=== PATIENT | female | born 1960 | race Caucasian/White ===

== ENCOUNTER 2018-08-14 05:30 | Day surgery (SDC) | payer BC ==
[2018-08-14] MEDS ORDERED: fentaNYL 100 MCG/2 ML SDV IV ONE ×3 (05:31→06:36)
[2018-08-14] MEDS ORDERED: Midazolam 1 MG/ML 2 ML SDV IV ONE ×7 (05:31→06:47)
[2018-08-14] MEDS ORDERED: Dextrose 5%-0.45% NaCl 1,000 ML IV SCH (06:00)
[2018-08-14] MEDS ORDERED: Sodium Chloride 0.9% 10 ML Syringe FLUSH PRN (06:00)
[2018-08-14] MEDS ORDERED: Midazolam 1 MG/ML 2 ML SDV ONE (06:02)
[2018-08-14] MEDS ORDERED: fentaNYL 100 MCG/2 ML SDV ONE (06:02)
--- NOTE | 2018-08-14 07:18 | OR ---
DATE: 08/14/2018 PROCEDURE: Total colonoscopy. INSTRUMENT USED: PCF-H190DL Olympus video colonoscope. PREMEDICATIONS: Fentanyl 100 mcg intravenous, Versed 4 mg intravenous, nasal O2 cannula. The procedure was done under pulse oximetry, BP recording, and teletypesetter monitor. INDICATION: Screening colonoscopic examination is done for detection of any polypoid lesions and removal, endoscopic hemostasis therapy if needed. DESCRIPTION OF PROCEDURE: Initial rectal exam was unremarkable. Rigid anoscopy was normal. The colonoscope was passed with ease up to the ileocecal area. Photographs were taken of the normal-appearing cecum identified by double-bulged ileocecal folds. No bleeding was noted from any of the visualized areas at the commencement of the examination. The bowel preparation was found to be adequate, [place] scale 3 in all the regions. No stricture. No vascular ectasia. No large isolated ulcerations seen. No evidence of diffuse inflammatory bowel disease in the form of friability, contact bleeding, or ulcerations. No polyp or tumor mass identified. Probing the proximal sides of folds and flexures, using adequate distention and clearing up the stool material, withdrawal of the scope was made, cecum to rectum time over 6 minutes. No bleeding was noted from any of the visualized areas at the completion of the examination. IMPRESSION: Normal study. The patient tolerated the procedure well. [facility] /[id number]
== END 2018-08-14 09:00 | disposition home or self-care (01) ==
LOC: DL.ENDO 05:30
PROVIDERS: ATTEND Internal Medicine Gastroenterology
DX: Z12.11 Encounter for screening for malignant neoplasm of colon (principal); G25.0 Essential tremor; F17.210 Nicotine dependence, cigarettes, uncomplicated; Z79.82 Long term (current) use of aspirin; Z87.42 Personal history of other diseases of the female genital tract
CPT/HCPCS: 45378; G0121; J2250; J3010; J7042